=== PATIENT | male | born 1955 ===

== ENCOUNTER 2018-05-05 11:02 | Emergency (ER) | payer MEDICAID, OTHER ==
[2018-05-05 11:18] VITALS: BMI 26.9
[2018-05-05] MEDS ORDERED: Sodium Chloride 0.9% 1,000 ML IV STA (12:30)
[2018-05-05] MEDS ORDERED: DiphenhydrAMINE 50 mg/ml Inj IVP STA (12:30)
--- NOTE | 2018-05-05 12:41 | ED PDOC ---
HPI: Headache Chief Complaint (Provider): Insomnia, Headache History Per: Cafe Server (Christina Vigil telugu interpretation) History/Exam Limitations: no limitations Onset/Duration Of Symptoms: Days (x14), Gradual Current Symptoms Are (Timing): Still Present Additional Complaint(s): 62 y/o male presents to the ED stating that for the past 2 weeks he has been unable to sleep at night. States this has caused him to feel anxious and nervous. Admits he had similar symptoms in the past, around 6 years ago, while living in [facility]. Patient then saw a psychiatrist, was prescribed medication, which he later discontinued on his own. For the past week, patient reports atraumatic occipital headache, with gradual onset. Otherwise no visual changes, dizziness, chest pain, SOB, nausea, vomiting, or photophobia. States he does have family here and a good support system, is working currently. No recent stressors. Denies any suicidal ideation, homicidal ideation, or hallucinations. Also admits he feels sad because he cannot sleep. PMD: Ramu Burns - Risk Factors SAH Risk Factors: Neg: Sudden Onset Of Pain, Worst Headache Of Life <Jefry Pacheco E - Last Filed: 05/05/18 15:46> <Mery Branch - Last Filed: 05/06/18 15:38> Time Seen by Provider: 05/05/18 12:04 Chief Complaint (Nursing): Psychiatric Evaluation Past Medical History Reviewed: Historical Data, Nursing Documentation, Vital Signs Vital Signs: Last Vital Signs Temp 97.4 F L 05/05/18 11:16 Pulse 68 05/05/18 11:16 Resp 20 05/05/18 11:16 BP 150/74 05/05/18 11:16 Pulse Ox 98 05/05/18 11:16 - Medical History PMH: Anxiety, Diabetes, HTN, Hyperlipidemia - Family History Family History: States: No Known Family Hx - Immunization History Hx Tetanus Toxoid Vaccination: No <Jefry Pacheco - Last Filed: 05/05/18 15:46> Vital Signs: Last Vital Signs Temp 98.1 F 05/05/18 15:50 Pulse 50 L 05/05/18 15:50 Resp 18 05/05/18 15:50 BP 129/67 05/05/18 15:50 Pulse Ox 97 05/05/18 15:50 <Mery Branch - Last Filed: 05/06/18 15:38> - Home Medications Home Medications: Ambulatory Orders Medication Instructions Recorded DiphenhydrAMINE [Benadryl] 2 cap PO BID #28 cap 05/06/18 Escitalopram [Lexapro] 10 mg PO DAILY 05/06/18 Losartan [Cozaar] 50 mg PO DAILY 05/06/18 - Allergies Allergies/Adverse Reactions: Allergies Allergy/AdvReac Type Severity Reaction Status Date / Time No Known Allergies Allergy Verified 05/06/18 13:15 Review of Systems ROS Statement: Except As Marked, All Systems Reviewed And Found Negative Constitutional: Negative for: Fever, Chills Cardiovascular: Negative for: Chest Pain Respiratory: Negative for: Shortness of Breath Gastrointestinal: Negative for: Nausea, Vomiting Musculoskeletal: Negative for: Neck Pain Neurological: Positive for: Headache. Negative for: Weakness, Numbness, Dizziness Psych: Positive for: Anxiety, Depression, Other (Inability to sleep). Negative for: Suicidal ideation (or homicidal) <Jefry Pacheco - Last Filed: 05/05/18 15:46> Physical Exam - Reviewed Nursing Documentation Reviewed: Yes Vital Signs Reviewed: Yes - Physical Exam Appears: Positive for: Well, Non-toxic, No Acute Distress Head Exam: Positive for: ATRAUMATIC, NORMOCEPHALIC Skin: Positive for: Normal Color, Warm, DRY Eye Exam: Positive for: Normal appearance Neck: Positive for: Normal, Painless ROM, Supple Cardiovascular/Chest: Positive for: Regular Rate, Rhythm. Negative for: Murmur Respiratory: Positive for: Normal Breath Sounds. Negative for: Accessory Muscle Use, Respiratory Distress Pulses-Radial (L): 2+ Pulses-Radial (R): 2+ Gastrointestinal/Abdominal: Positive for: Soft. Negative for: Tenderness, Distended Extremity: Positive for: Normal ROM. Negative for: Calf Tenderness, Deformity, Swelling Neurologic/Psych: Positive for: Alert, jewelry sales representative II-XII (intact), Oriented (x3), Gait (steady), Other (Calm, cooperative). Negative for: Motor/Sensory Deficits <Jefry Pacheco - Last Filed: 05/05/18 15:46> - Laboratory Results Result Diagrams: 05/05/18 12:39 05/05/18 12:39 - ECG ECG: Positive for: Interpreted By Me, Viewed By Me ECG Rhythm: Positive for: Sinus Bradycardia. Negative for: ST/T Changes Rate: 50 (bpm) O2 Sat by Pulse Oximetry: 98 (RA) Pulse Ox Interpretation: Normal <Jefry Pacheco E - Last Filed: 05/05/18 15:46> - Laboratory Results Result Diagrams: 05/05/18 12:39 05/05/18 12:39 <BranchMery F - Last Filed: 05/06/18 15:38> Medical Decision Making Medical Decision Making: Impression: 62 yo male complaining of insomnia, anxiety, and headache Initial Plan: --Blood work --EKG --CT Head w/o contrast --IV fluids --Reglan 10 mg IVP --Benadryl 50 mg IVP --Pending reassessment Head CT results: FINDINGS: HEMORRHAGE: No intracranial hemorrhage. BRAIN: No mass effect or edema. Mild atrophy. Mild chronic microvascular ischemic changes. VENTRICLES: Unremarkable. No hydrocephalus. CALVARIUM: Unremarkable. PARANASAL SINUSES: Unremarkable as visualized. No significant inflammatory changes. MASTOID AIR CELLS: Unremarkable as visualized. No inflammatory changes. OTHER FINDINGS: None. IMPRESSION: No acute intracranial pathology. Age-related changes. 1430 On reassessment patient is sleeping comfortably. Pending labs. 1515 Pt. evaluated by Rosalba BOWENS who spoke with Dr. Puente and cleared pt. for discharge and outpatient arrrangement f/u made. On my re-evaluation, pt. AAOx3. States he is feeling much better and was able to sleep comfortably while in ED. Offers no complaints. Gait steady, unassisted. States he will be taking a taxi home. Scribe Attestation: Documented by Michelle Lau, acting as a scribe for Jefry Pacheco PA-C. Provider Scribe Attestation: All medical record entries made by the [facility] were at my direction and personally dictated by me. I have reviewed the chart and agree that the record accurately reflects my personal performance of the history, physical exam, medical decision making, and the department course for this patient. I have also personally directed, reviewed, and agree with the discharge instructions and disposition. <MadelinlocoJefry E - Last Filed: 05/05/18 15:46> Disposition - Patient ED Disposition Is Patient to be Admitted: No - Disposition Disposition: Routine/Home Disposition Time: 15:35 <JuniorJefry Rima - Last Filed: 05/05/18 15:46> <Mery Branch - Last Filed: 05/06/18 15:38> - Clinical Impression Clinical Impression: Insomnia - Disposition Referrals: [facility] [Outside] Condition: IMPROVED Additional Instructions: MELI PAIZ, thank you for letting us take care of you today. Your provider was Mery Branch MD and you were treated for CAN'T SLEEP,FEET PAIN. The emergency medical care you received today was directed at your acute symptoms. If you were prescribed any medication, please fill it and take as directed. It may take several days for your symptoms to resolve. Return to the Emergency Department if your symptoms worsen, do not improve, or if you have any other problems. Please contact your doctor or call one of the physicians/clinics you have been referred to that are listed on the Patient Visit Information form that is included in your discharge packet. Bring any paperwork you were given at discharge with you along with any medications you are taking to your follow up visit. Our treatment cannot replace ongoing medical care by a primary care provider outside of the emergency department. Thank you for allowing the [facility] team to be part of your care today. If you had an X-Ray or CT scan: A Radiologist will review the ED reading if any change in treatment is needed we will contact you. If you had a blood, urine, or wound culture: It will take several days for the results, if any change in treatment is needed we will contact you. If you had an STI test: It will take 48 hours for the results. Please call after 1 week if you have not heard back. Instructions: Insomnia (DC) Forms: ABS (Slovak) Print Language: YEMENI - PA / MANAGER EMERGENCY DEPARTMENT / Resident Statement MD/DO has reviewed & agrees with the documentation as recorded. <Jefry Pacheco - Last Filed: 05/05/18 15:46> Attending/Attestation - Attestation I have personally seen and examined this patient.: No I have reviewed all pertinent clinical information: Yes <Mery Branch - Last Filed: 05/06/18 15:38>
[2018-05-05] MEDS ORDERED: DiphenhydrAMINE 50 mg/ml Inj ONE (12:46)
[2018-05-05 12:50] LABS: BASO # 0.1 K/uL (0.0-0.2); BASO % 0.6 % (0.0-2.0); EOS # 0.1 K/uL (0.0-0.7); HEMOGLOBIN 15.6 g/dL (12.0-18.0); LYMPH # 2.7 K/uL (1.0-4.3); LYMPH % 25.2 % (20.0-40.0); MEAN CELL VOLUME 97.7 fl (80.0-94.0); MEAN CORPUSCULAR HEMOGLOBIN 33.8 pg (27.0-31.0); MEAN CORPUSCULAR HGB CONC 34.6 g/dL (33.0-37.0); MEAN PLATELET VOLUME 8.7 fl (7.2-11.7); MONO # 0.9 K/uL (0.0-0.8); NEUT # 7.1 K/uL (1.8-7.0); NEUT % 65.2 % (50.0-75.0); NRBC % 0.1 % (0.0-0.0); RBC 4.6 Mil/uL (4.40-5.90); RED CELL DISTRIBUTION WIDTH 13.2 % (11.5-14.5); WHITE BLOOD COUNT 10.8 K/uL (4.8-10.8)
[2018-05-05 13:06] LABS: ALB/GLOB RATIO 1.3 (1.0-2.1); ALBUMIN 4.6 g/dL (3.5-5.0); ALT/SGPT 54 U/L (21-72); AST/SGOT 47 U/L (17-59); BLOOD UREA NITROGEN 13 mg/dl (9-20); CALCIUM 9.8 mg/dL (8.4-10.2); GFR NON-AFRICAN AMERICAN > 60
[2018-05-05 13:08] LABS: INR 1.1; PROTHROMBIN TIME 12.3 Seconds (9.8-13.1)
[2018-05-05 13:10] LABS: PARTIAL THROMBOPLASTIN TIME 32.6 Seconds (25.6-37.1)
--- NOTE | 2018-05-05 13:45 | CT ---
Date of service: 05/05/2018 PROCEDURE: CT HEAD WITHOUT CONTRAST. HISTORY: headache COMPARISON: None available. TECHNIQUE: Axial computed tomography images were obtained through the head/brain without intravenous contrast. Radiation dose: Total exam DLP = 888.7 mGy-cm. This CT exam was performed using one or more of the following dose reduction techniques: Automated exposure control, adjustment of the mA and/or kV according to patient size, and/or use of iterative reconstruction technique. FINDINGS: HEMORRHAGE: No intracranial hemorrhage. BRAIN: No mass effect or edema. Mild atrophy. Mild chronic microvascular ischemic changes. VENTRICLES: Unremarkable. No hydrocephalus. CALVARIUM: Unremarkable. PARANASAL SINUSES: Unremarkable as visualized. No significant inflammatory changes. MASTOID AIR CELLS: Unremarkable as visualized. No inflammatory changes. OTHER FINDINGS: None. IMPRESSION: No acute intracranial pathology. Age-related changes.
[2018-05-05 14:44] LABS: BARBITURATES, UR NEGATIVE (NEGATIVE); BENZODIAZEPINES, UR NEGATIVE (NEGATIVE); OPIATES, UR NEGATIVE (NEGATIVE); PHENCYCLIDINE, UR NEGATIVE (NEGATIVE)
[2018-05-05 15:47] VITALS: PULSE 50
[2018-05-05 15:55] VITALS: BP 129/67; RESP 18; TEMP 98.1; O2SAT 97
--- NOTE | 2018-05-05 21:12 | CARD ---
APPROVED REPORT Date of service: 05/05/2018 EKG Measurement Heart [id number] <Conclusion> Sinus bradycardia Otherwise normal ECG
== END 2018-05-05 15:55 | disposition home or self-care (01) ==
LOC: H.ER 11:02
DX: G47.00 Insomnia, unspecified (principal); E11.9 Type 2 diabetes mellitus without complications; E78.5 Hyperlipidemia, unspecified; I10 Essential (primary) hypertension; F41.9 Anxiety disorder, unspecified; R00.1 Bradycardia, unspecified
CPT/HCPCS: 70450; 80053; 80320; 80324; 80345; 80346; 80349; 80353; 80358; 80361; 83992; 84484; 85025; 85610; 85730; 93005; 96374; 96375; 99284; J1200; J2765; J7030